=== PATIENT | female | born 1995 | race Caucasian/White ===

== ENCOUNTER 2016-11-16 11:44 | Emergency (ER) | payer OTHER ==
[2016-11-16 12:11] VITALS: BP 108/72
--- NOTE | 2016-11-16 12:49 | UC ---
Throat Pain/Nasal Bogdan HPI - HPI Summary HPI Summary: SEVERAL DAYS OF ST, PAIN WITH SWALLOWING AND FEVER TMAX 103. LEFT SIDE OF THROAT IS SWOLLEN. TONSILS ENLARGED. HAS LEFT SIDED EAR PAIN. WENT TO [facility] YESTERDAY AND DX WITH VIRUS AND POSSIBLE ABSCESS. HAD 2L NS AND PUT ON PO CLINDA BUT PT DID NOT TOLERATE IT. TOOK 2 DOSES AND HAD VOMITING AND DIARRHEA. STATES NO STREP TEST. DOES NOT FEEL BETTER TODAY. LAST DOSE TYLENOL 3 HRS AGO. IS RECOVERING FROM BRONCHITIS AND HAS RESIDUAL COUGH AND CONGESTION. - History of Current Complaint Chief Complaint: UCGeneralIllness Stated Complaint: FEVER COUGH SORE THROAT Time Seen by Provider: 11/16/16 12:04 Hx Obtained From: Patient, Family/Donkey Doctor - MOM Hx Last Menstrual Period: 11/06/16 Onset/Duration: Gradual Onset, Lasting Days, Still Present Pain Intensity: 0 - 0/10 PAIN WITH TYLENOL ON BOARD Pain Scale Used: 0-10 Numeric Cough: Nonproductive Associated Signs & Symptoms: Positive: Fever - Allergies/Home Medications Allergies/Adverse Reactions: Allergies Allergy/AdvReac Type Severity Reaction Status Date / Time No Known Allergies Allergy Verified 12/14/15 19:56 Home Medications: Home Medications Budesonide/Formote 160/4.5(NF) [Symbicort 160/4.5 (NF)] 11/16/16 [History] Clindamycin CAP* [Cleocin 150 MG CAP*] 11/16/16 [History] Levalbuterol HFA INHALER* [Xopenex Hfa Inhaler*] 11/16/16 [History] Norethindrone Acetate-Ethinyl [Tri-Legest Fe 1-20/1-30/1-35 mg-Mcg] 11/16/16 [ History] PMH/Surg Hx/FS Hx/Imm Hx Endocrine History Of: Denies: Diabetes, Thyroid Disease Cardiovascular History Of: Denies: Cardiac Disorders, Hypertension Respiratory History Of: Reports: Asthma Denies: COPD GI/ History Of: Denies: Ulcer - Surgical History Surgical History: Yes Surgery Procedure, Year, and Place: wisdom teeth - Family History Known Family History: Positive: Hypertension, Diabetes - Social History Alcohol Use: Weekly Substance Use Type: None Smoking Status (MU): Never Smoked Tobacco Review of Systems Constitutional: Fever, Chills, Fatigue ENT: Sore Throat, Ear Ache, Nasal Discharge Respiratory: Cough Cardiovascular: Negative Gastrointestinal: Vomiting, Diarrhea All Other Systems Reviewed And Are Negative: Yes Physical Exam Triage Information Reviewed: Yes Appearance: No Pain Distress, Well-Nourished, Ill-Appearing - MILDLY Vital Signs: Initial Vital Signs Temp 98.4 F 11/16/16 12:05 Pulse 109 11/16/16 12:05 Resp 16 11/16/16 12:05 BP 108/72 11/16/16 12:05 Pulse Ox 98 11/16/16 12:05 Eyes: Positive: Conjunctiva Clear ENT: Positive: Hearing grossly normal, Nasal congestion, TMs normal, Tonsillar swelling - LEFT > RIGHT. Negative: Trismus Neck: Positive: Supple, Tenderness @ - SPFL CERVICAL LAD, Enlarged Nodes @ - SPFL CERVICAL LAD Respiratory Exam: Normal Cardiovascular: Positive: Tachycardia Abdomen Description: Positive: Soft Musculoskeletal: Positive: No Edema Neurological: Positive: Alert Psychological: Positive: Normal Response To Family, Age Appropriate Behavior Skin: Negative: rashes Diagnostics - Laboratory Diagnostic Studies Completed/Ordered: RAPID STREP NEGATIVE Throat Pain/Nasal Course/Dx - Course Course Of Treatment: PT NOT FEELING AT ALL IMPROVED. UNABLE TO TOLERATE HER PO ABX. PERSISTENT FEVER. SEND TO ER FOR FURTHER EVAL/RULE OUT ABSCESS. - Differential Dx/Diagnosis Differential Diagnosis/HQI/PQRI: Mononucleosis, Peritonsillar Abscess Provider Diagnoses: ACUTE TONSILLITIS - Physician Notification/Consults Discussed Patient Care With: CECI CARY Time Discussed With Above Provider: 13:08 - TO [facility] BY PRIVATE CAR Instructed by Provider To: MD Will See In ED Discharge - Discharge Plan Condition: Stable Disposition: AGAINST MEDICAL ADVICE Referrals: Non Staff,Doctor [Primary Care Provider] -
== END 2016-11-16 13:26 | disposition left against medical advice (07) ==
LOC: UCEAST 11:44
DX: J03.90 Acute tonsillitis, unspecified (principal); J45.909 Unspecified asthma, uncomplicated
CPT/HCPCS: 87651; 99212; G0463